=== PATIENT | female | born 2000 | race Caucasian/White ===

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

== ENCOUNTER 2023-02-01 12:58 | Emergency (ER) | payer SELFPAY ==
[2023-02-01] MEDS ORDERED: traMADol 50 MG Tab PO ONE (13:37)
[2023-02-01] MEDS ORDERED: Diphtheria,Pertussis(Acell),Tetanus Vaccine 0.5 ML Syringe IM ONE (13:38)
[2023-02-01 15:10] VITALS: BP 118/72; PULSE 72
== END 2023-02-01 15:08 | disposition home or self-care (01) ==
LOC: MW.ED 12:58
DX: S61.531A Puncture wound without foreign body of right wrist, initial encounter (principal); S63.501A Unspecified sprain of right wrist, initial encounter; Z23 Encounter for immunization; W25.XXXA Contact with sharp glass, initial encounter
CPT/HCPCS: 73110; 73130; 90471; 90715; 99283; A9270